=== PATIENT | female | born 1970 | race Caucasian/White ===

== ENCOUNTER 2024-12-15 22:53 | Emergency (ER) | payer OTHER ==
[~2024-12-15] VITALS: Ht 172.7 cm; Wt 82.1 kg
[~2024-12-15 22:53] MED LIST: ALBU90OI INH; ALBU90OI6 INH; ALBU90OI61 INH; AMOCLA875 PO; BCP'S; BUPR150T2 PO; Bactrim Ds Tab1 EACH PO; CYCL10 PO; HYDACE5 PO; HYDACE5325 PO; IBUP800 PO; NAPR500 PO; Naprosyn500 MG PO; PRED10 PO; PRED20 PO; RXHYD5325 PO; SULTRIDS PO; Ultram50 MG PO
[2024-12-16] MEDS ORDERED: Oxymetazoline 0.05% Nasal Relief Spray 15mL BTL ONE (00:40)
[2024-12-16] MEDS ORDERED: NS 500 ML IV SCH (00:40)
[2024-12-16] MEDS ORDERED: DiphenhydrAMINE HCl 50 MG/ML 1ML Vial IV ONE (00:40)
[2024-12-16] MEDS ORDERED: Metoclopramide HCl 5MG / ML 2ML Vial IV ONE (00:40)
[2024-12-16] MEDS ORDERED: Ketorolac Tromethamine 30mg Vial IV ONE (00:40)
[2024-12-16] MEDS ORDERED: REGLAN1013 PO (02:03)
[2024-12-16 02:13] VITALS: BP 106/65
== END 2024-12-16 03:01 | disposition home or self-care (01) ==
LOC: ER 22:53
DX: S09.90XA Unspecified injury of head, initial encounter (principal); S16.1XXA Strain of muscle, fascia and tendon at neck level, initial encounter; S50.01XA Contusion of right elbow, initial encounter; R04.0 Epistaxis; E86.0 Dehydration; F17.210 Nicotine dependence, cigarettes, uncomplicated; J45.909 Unspecified asthma, uncomplicated
CPT/HCPCS: 70450; 70486; 72125; 96374; 96375; 99284-25; A9270; J1200; J1885; J2765; J7030